=== PATIENT | male | born 1970 | race Caucasian/White ===

== ENCOUNTER 2023-08-08 07:41 | Day surgery (SDC) | payer OTHER ==
[~2023-08-08] VITALS: Ht 170.2 cm; Wt 83.9 kg
[2023-08-08 08:15] VITALS: O2SAT 99
[2023-08-08] MEDS ORDERED: SUCCINYLCHOLINE CHLORIDE 20 MG/ML(QUELICIN) ONE (10:33)
[2023-08-08] MEDS ORDERED: EPINEPHRINE HCL/PF 1 MG/ML AMP ONE (10:33)
[2023-08-08] MEDS ORDERED: fentaNYL CITRATE/PF 100 MCG/2 ML AMP ONE (10:33)
[2023-08-08] MEDS ORDERED: DEXAMETHASONE SOD PHOSPHATE 4 MG/ML VIAL ONE (10:33)
[2023-08-08] MEDS ORDERED: NS 1000 ML IV.SOLN IV ONE (10:33)
[2023-08-08] MEDS ORDERED: PROPOFOL 200MG/ 20ML VIAL (DIPRIVAN) IV ONE (10:33)
[2023-08-08] MEDS ORDERED: ONDANSETRON HCL 4 MG/2 ML VIAL ONE (10:33)
[2023-08-08] MEDS ORDERED: GLYCOPYRROLATE 0.2 MG/ML VIAL ONE (10:33)
[2023-08-08] MEDS ORDERED: SEVOFLURANE 15 MIN GAS INH ONE (10:33)
[2023-08-08] MEDS ORDERED: MIDAZOLAM HCL/PF 2 MG/2 ML SYRINGE ONE (10:33)
[2023-08-08] MEDS ORDERED: CLINDAMYCIN PHOSPHATE 900 mg/50mL D5W IV ONE (10:33)
[2023-08-08] MEDS ORDERED: METOCLOPRAMIDE HCL 10 MG/2 ML VIAL IVP PRN (11:45)
[2023-08-08] MEDS ORDERED: ONDANSETRON HCL 4 MG/2 ML VIAL IVP PRN (11:45)
[2023-08-08] MEDS ORDERED: ACETAMINOPHEN I.V. 1000 MG 100 ML IV ONE (11:45)
[2023-08-08] MEDS ORDERED: HYDROmorphone 1 MG/ML INJ. CARTRIDGE IVP PRN (11:45)
[2023-08-08] MEDS ORDERED: IBUPROFEN 800 MG TABLET PO PRN (11:45)
[2023-08-08] MEDS ORDERED: KETOROLAC TROMETHAMINE 30 MG VIAL IVP PRN (11:45)
[2023-08-08 16:48] VITALS: BP_SYST 106; PULSE 85; RESP 20
== END 2023-08-08 15:35 | disposition home or self-care (01) ==
LOC: SDS 07:41 → SMU 07:42 → SDS 15:35
PROVIDERS: ATTEND Orthopaedic Surgery Sports Medicine
DX: S43.492A Other sprain of left shoulder joint, initial encounter (principal); M75.122 Complete rotator cuff tear or rupture of left shoulder, not specified as traumatic; M75.52 Bursitis of left shoulder; I10 Essential (primary) hypertension; G47.33 Obstructive sleep apnea (adult) (pediatric); X58.XXXA Exposure to other specified factors, initial encounter; Y93.89 Activity, other specified; Y92.89 Other specified places as the place of occurrence of the external cause; Y99.8 Other external cause status
CPT/HCPCS: 87081; 64415; 29827; 29822; J3490 ×2; J1100; J0171; J3465; J2405; J2704; J0330; J3010; J7030; C1713